=== PATIENT | female | born 1940 | race Caucasian/White ===

== ENCOUNTER 2016-08-05 19:58 | Inpatient (IN) | payer MEDICARE, OTHER ==
[~2016-08-05 19:58] MED LIST: FENOFIBRATE54 M1 PO; FISH OIL 1,0001 CA1 PO; KLOR-CON 1010 MEQ PO; LASIX40 MG PO; MAXZIDE 37.5 M1 EACH PO; OXYCODONE-ACET1 EAC3 PO; TYLENOL ARTHRI650 M1 PO; ULTRAM50 M1 PO
[2016-08-05 21:15] LABS: BASO % 0.2 % (0-2); EOS % 0.4 % (0-7); EOSINOPHIL ABSOLUTE COUNT 0.1 tho/cmm (0.0-0.7); HCT-HEMATOCRIT 43.9 % (34.0-49.0); HGB-HEMOGLOBIN 14.6 gm/dl (12.0-15.5); IMMATURE GRANULOCYTES ABSOLUTE 0.03 tho/cmm (0-0.03); IMMATURE GRANULOCYTES PERCENT 0.3 % (0-0.3); LYMPH % 11.3 % (20-45); LYMPH ABSOLUTE COUNT 1.3 tho/cmm (0.8-4.5); MCH (MEAN CORPUSCULAR HGB) 29.4 pg (28.0-32.0); MCHC MEAN CORPUSCULAR HGB CONC 33.3 % (32.0-36.0); MCV (MEAN CELL VOLUME) 88.3 fl (82.0-96.0); MEAN PLATELET VOLUME 10.7 cmc (9.4-12.4); MONO % 5.7 % (0-12); MONOCYTE ABSOLUTE COUNT 0.7 tho/cmm (0.0-1.2); NEUTROPHIL ABSOLUTE COUNT 9.5 tho/cmm (1.6-8.0); NEUTROPHIL-AUTOMATED 9.5 tho/cmm (1.6-8.0); NEUTROPHILS % 82.1 % (40-80); PLATELET COUNT 190 tho/cmm (150-450); RED BLOOD COUNT 4.97 mil/cmm (4.00-5.20); RED CELL DISTRIBUTION WIDTH 13.7 % (12.4-16.4); WHITE BLOOD COUNT 11.5 tho/cmm (4.0-10.0)
[2016-08-05 21:28] LABS: ALB/GLOB RATIO 0.5 (0.8-2.0); ALBUMIN 3.4 g/dl (3.5-5.0); ALKALINE PHOSPHATASE 47 U/L (33-138); ALT/SGPT 61 U/L (12-78); ANION GAP 12 mmol/L (0-20); AST/SGOT 66 U/L (10-40); BILIRUBIN,TOTAL 0.8 mg/dl (0-1.5); BLOOD UREA NITROGEN 20 mg/dl (6-24); CALCIUM 8.5 mg/dl (8.5-10.5); CARBON DIOXIDE-VENOUS 28 mmol/L (22-32); CHLORIDE 101 mmol/l (96-110); CREATININE 1.16 mg/dl (0.50-1.10); GLUCOSE 143 mg/dL (70-110); POTASSIUM 3.7 mmol/L (3.7-5.1); SODIUM 137 mmol/L (135-145); eGFR VALUE FOR BLACK 54 mL/Min
[2016-08-05 22:01] LABS: PROCALCITONIN 0.11 ng/ml (0.05-0.09)
[2016-08-05 23:23] LABS: URINE BILIRUBIN MODERATE (NEG); URINE BLOOD NEGATIVE (NEG); URINE GLUCOSE (UA) NEGATIVE (NEG); URINE KETONE NEGATIVE (NEG); URINE LEUKOCYTE ESTERASE POSITIVE (NEG); URINE NITRITE POSITIVE (NEG); URINE PROTEIN SMALL (NEG)
[2016-08-05 23:25] LABS: URINE APPEARANCE HAZY; URINE COLOR ORANGE
[2016-08-05 23:30] LABS: URINE BACTERIA 1+; URINE RBC 0 /[HPF] (0-5)
[2016-08-06] MEDS ORDERED: MULTIVITAMINS1 EAC6 PO (01:08)
[2016-08-06] MEDS ORDERED: ZYRTEC10 M7 PO (01:09)
[2016-08-06 01:27] LABS: BASO % 0.1 % (0-2); EOS % 0.2 % (0-7); HCT-HEMATOCRIT 38.2 % (34.0-49.0); HGB-HEMOGLOBIN 12.7 gm/dl (12.0-15.5); IMMATURE GRANULOCYTES ABSOLUTE 0.02 tho/cmm (0-0.03); IMMATURE GRANULOCYTES PERCENT 0.1 % (0-0.3); LYMPH % 11.4 % (20-45); LYMPH ABSOLUTE COUNT 1.5 tho/cmm (0.8-4.5); MCH (MEAN CORPUSCULAR HGB) 29.7 pg (28.0-32.0); MCHC MEAN CORPUSCULAR HGB CONC 33.2 % (32.0-36.0); MCV (MEAN CELL VOLUME) 89.3 fl (82.0-96.0); MEAN PLATELET VOLUME 10.7 cmc (9.4-12.4); MONO % 6.3 % (0-12); MONOCYTE ABSOLUTE COUNT 0.9 tho/cmm (0.0-1.2); NEUTROPHILS % 81.9 % (40-80); PLATELET COUNT 164 tho/cmm (150-450); RED BLOOD COUNT 4.28 mil/cmm (4.00-5.20); RED CELL DISTRIBUTION WIDTH 13.8 % (12.4-16.4); WHITE BLOOD COUNT 13.4 tho/cmm (4.0-10.0)
[2016-08-06 01:40] LABS: ANION GAP 12 mmol/L (0-20); BLOOD UREA NITROGEN 19 mg/dl (6-24); CALCIUM 7.3 mg/dl (8.5-10.5); CARBON DIOXIDE-VENOUS 24 mmol/L (22-32); CHLORIDE 107 mmol/l (96-110); CREATININE 0.95 mg/dl (0.50-1.10); GLUCOSE 147 mg/dL (70-110); MAGNESIUM 1.5 mg/dl (1.8-2.6); POTASSIUM 3.5 mmol/L (3.7-5.1); SODIUM 139 mmol/L (135-145); eGFR VALUE FOR BLACK 68 mL/Min
[2016-08-06 01:49] LABS: PROCALCITONIN 0.43 ng/ml (0.05-0.09)
[2016-08-06 10:02] LABS: BASO % 0.1 % (0-2); EOS % 0.1 % (0-7); HCT-HEMATOCRIT 37.5 % (34.0-49.0); HGB-HEMOGLOBIN 12.3 gm/dl (12.0-15.5); IMMATURE GRANULOCYTES ABSOLUTE 0.05 tho/cmm (0-0.03); IMMATURE GRANULOCYTES PERCENT 0.4 % (0-0.3); LYMPH % 18.6 % (20-45); LYMPH ABSOLUTE COUNT 2.6 tho/cmm (0.8-4.5); MCH (MEAN CORPUSCULAR HGB) 29.4 pg (28.0-32.0); MCHC MEAN CORPUSCULAR HGB CONC 32.8 % (32.0-36.0); MCV (MEAN CELL VOLUME) 89.5 fl (82.0-96.0); MEAN PLATELET VOLUME 10.6 cmc (9.4-12.4); MONOCYTE ABSOLUTE COUNT 0.8 tho/cmm (0.0-1.2); NEUTROPHIL ABSOLUTE COUNT 10.3 tho/cmm (1.6-8.0); NEUTROPHIL-AUTOMATED 10.3 tho/cmm (1.6-8.0); NEUTROPHILS % 74.8 % (40-80); PLATELET COUNT 158 tho/cmm (150-450); RED BLOOD COUNT 4.19 mil/cmm (4.00-5.20); WHITE BLOOD COUNT 13.7 tho/cmm (4.0-10.0)
--- NOTE | 2016-08-06 10:13 | NUR ---
VN/LEADER ROUNDING-PATIENT DOING FINE-SHE IS JUST GETTING BACK TO BED FROM THE BATHROOM. STATES PAIN IS STAYING PRETTY WELL CONTROLLED EXCEPT WITH THE COUGHING BUT STATES STAFF IS DOING REAL GOOD WITH ANSWERING THE CALL LIGHT. I ENCOURAGED HER TO CONTINUE TAKING DEEP BREATHS EVEN THOUGH SHE SAID SHE DIDNT NEED TO TO COUGH. EDUCATED ON IMPORTANCE. PATIENT HAS NO OTHER QUESTIONS OR CONCERNS AT THIS TIME
[2016-08-06 10:23] LABS: ALB/GLOB RATIO 0.5 (0.8-2.0); ALBUMIN 2.5 g/dl (3.5-5.0); ALKALINE PHOSPHATASE 38 U/L (33-138); ALT/SGPT 45 U/L (12-78); ANION GAP 11 mmol/L (0-20); AST/SGOT 46 U/L (10-40); BILIRUBIN,TOTAL 0.8 mg/dl (0-1.5); BLOOD UREA NITROGEN 13 mg/dl (6-24); CALCIUM 7.3 mg/dl (8.5-10.5); CARBON DIOXIDE-VENOUS 25 mmol/L (22-32); CHLORIDE 108 mmol/l (96-110); CREATININE 0.98 mg/dl (0.50-1.10); GLUCOSE 141 mg/dL (70-110); POTASSIUM 3.1 mmol/L (3.7-5.1); SODIUM 141 mmol/L (135-145); eGFR VALUE FOR BLACK 66 mL/Min
--- NOTE | 2016-08-06 21:35 | NUR ---
VIRTUAL CARE NOTE: PT. IN WALKING IN THE ROOM THEN SITS IN HER CHAIR. STATES SHE HAS SOME SORENESS TO HER CHEST IS ALL FROM ALL THE COUGHING SHE HAS DONE. THIS NURSE VIEWED MAR AND NOTED PT. HASN'T TAKEN ANY MEDS FOR PAIN AND EDUCATION PROVIDED ON OPTIONS SHE HAD AND IF WOULD LIKE TO TRY SOME TO SEE IF WOULD HELP EVEN TAKE SOME OF THE EDGE OFF TO HELP WITH REST TO LET US KNOW AND WE CAN GIVE HER SOME. DENIES FURTHER QUESTIONS OR NEEDS AT THIS TIME. INSTRUCTED TO CALL FOR FUTURE NEEDS. STATES VERBAL AGREEMENT.
[2016-08-07 11:55] LABS: BASO % 0.4 % (0-2); EOS % 1.6 % (0-7); EOSINOPHIL ABSOLUTE COUNT 0.1 tho/cmm (0.0-0.7); HCT-HEMATOCRIT 38.2 % (34.0-49.0); HGB-HEMOGLOBIN 12.5 gm/dl (12.0-15.5); IMMATURE GRANULOCYTES ABSOLUTE 0.01 tho/cmm (0-0.03); IMMATURE GRANULOCYTES PERCENT 0.1 % (0-0.3); LYMPH % 33.3 % (20-45); LYMPH ABSOLUTE COUNT 2.8 tho/cmm (0.8-4.5); MCH (MEAN CORPUSCULAR HGB) 29.7 pg (28.0-32.0); MCHC MEAN CORPUSCULAR HGB CONC 32.7 % (32.0-36.0); MCV (MEAN CELL VOLUME) 90.7 fl (82.0-96.0); MONO % 6.1 % (0-12); MONOCYTE ABSOLUTE COUNT 0.5 tho/cmm (0.0-1.2); NEUTROPHIL ABSOLUTE COUNT 4.8 tho/cmm (1.6-8.0); NEUTROPHIL-AUTOMATED 4.8 tho/cmm (1.6-8.0); NEUTROPHILS % 58.5 % (40-80); PLATELET COUNT 183 tho/cmm (150-450); RED BLOOD COUNT 4.21 mil/cmm (4.00-5.20); RED CELL DISTRIBUTION WIDTH 14.3 % (12.4-16.4); WHITE BLOOD COUNT 8.3 tho/cmm (4.0-10.0)
[2016-08-07 12:03] LABS: ANION GAP 10 mmol/L (0-20); BLOOD UREA NITROGEN 10 mg/dl (6-24); CALCIUM 7.4 mg/dl (8.5-10.5); CARBON DIOXIDE-VENOUS 28 mmol/L (22-32); CHLORIDE 105 mmol/l (96-110); CREATININE 0.87 mg/dl (0.50-1.10); GLUCOSE 76 mg/dL (70-110); MAGNESIUM 1.9 mg/dl (1.8-2.6); PHOSPHOROUS 2.4 mg/dl (2.5-4.9); POTASSIUM 3.6 mmol/L (3.7-5.1); SODIUM 139 mmol/L (135-145); eGFR VALUE FOR BLACK 76 mL/Min
--- NOTE | 2016-08-07 14:07 | NUR ---
VIRTUAL CARE NOTE: PT NOT IN ROOM AT THIS TIME.
--- NOTE | 2016-08-07 19:47 | NUR ---
VIRTUAL CARE NOTE: PT. IN THE CHAIR WITH SPOUCE IN ROOM. STATES IS FEELING OKAY AND WAS GRATEFUL FOR ADVICE ON PAIN CONTROL OPTIONS GIVEN BY THIS NURSE THE EVENING BEFORE. ENQUIRED CXR RESULTS. THIS NURSE STATED TO PT. AND FAMILY THERE WASN'T AN IMPROVEMENT AND EDUCATION PROVIDED THAT WE MAY NEED TO BEGIN I.S. AND TO CONTINUE C, AND DB OFTEN. IN ADDITION TO MAKE SURE TO DRINK FLUIDS AND TO CONTINUE TO AMBULATE. DENIES FURTHER QUESTIONS AT THIS TIME. INSTRUCTED TO CALL FOR FUTURE NEEDS. STATES VERBAL AGREEMENT.
[2016-08-08] MEDS ORDERED: CEFDINIR300 M1 PO (13:18)
[2016-08-08] MEDS ORDERED: ZITHROMAX500 M2 PO (13:18)
[2016-08-08] MEDS ORDERED: MUCINEX600 M1 PO (13:21)
== END 2016-08-08 14:15 | DRG 871 ==
LOC: EDMED 19:58 → EMR2 08-06 00:02 → 5WD 08-06 00:12
PROVIDERS: Emergency Medicine; Internal Medicine; ADMIT Hospitalist
DX: A41.9 Sepsis, unspecified organism (principal); J18.9 Pneumonia, unspecified organism; I10 Essential (primary) hypertension; R60.0 Localized edema
CPT/HCPCS: J0456; J0696; J1650; J1956; J2405; J2543; J3475; J7030; J7050